=== PATIENT | male | born 1935 | race Caucasian/White ===

== ENCOUNTER 2024-05-15 19:24 | Emergency (ER) | payer OTHER, SELFPAY ==
[2024-05-15 19:26] VITALS: BP 190/98
[2024-05-15 20:52] VITALS: BP 183/93
[2024-05-15 21:00] VITALS: BP 183/89; BMI 26.3
--- NOTE | 2024-05-15 21:21 | ED.GENMED ---
History of Present Illness
<Brie Cantor [facility] - Last Filed: 05/15/24 22:05>
General
Chief Complaint: Overdose Unintentional
Source: patient and family (Daughter)
Exam Limitations: dementia
Time Seen by Provider: 05/15/24 20:51
History of Present Illness
History of Present Illness:
This is a 88 y/o male with PMH of dementia, prostate CA and bladder CA who presents to the ED c/o unintentional overdose. Pt presents with his daughter who went to check on him earlier today around noon and noticed 2 days worth of his morning
medications were missing after the nurse had just filled them. These medications include Lopressor, Lasix, Plavix and ASA. Pt admits to feeling fatigued, generalized weakness and overall low energy. He accompanied his daughter on errands today and
was sluggish and constantly wanting to sit down and rest. He admits to tinnitus but states this is normal for him, denies any worsening of tinnitus from baseline today. Admits to L lower groin pain. Daughter is worried it is a UTI and is requesting
testing. Denies headache, nausea, vomiting, diarrhea, diaphoresis, chest pain, palpitations, syncope, dizziness, dysuria and hematuria. Denies tobacco and alcohol use.
Phy Exam
<Brie Cantor [facility] - Last Filed: 05/15/24 22:05>
Physical Exam
Physical Exam:
Skin: [place], soft, well-hydrated
Head: Atraumatic, normocephalic; scalp, pink freely moveable without tenderness
Eyes: sclerae non-icteric; pupils 2mm bilaterally and nonreactive to light; EOMI; no lid lag; red reflex present; visual asif full by confrontation bilaterally
Chest and Lungs: muscle and respiratory effort symmetric without use of accessory muscles; vesicular breath sounds without adventitious sounds; even, quiet breathing
Heart: No lifts or heaves visible; bradycardic rate and regular rhythm; No murmurs, rubs or gallops
PV: radial, dorsalis pedis and posterior tibial pulses all intact bilaterally
Course
<Brie Cantor, [facility] - Last Filed: 05/15/24 22:05>
Orders/Labs/Results
Orders:
Orders
05/15/24 21:01
Electrocardiogram (*1) Stat
Reason for Study: Other
Other Reason for Exam: overdose
EKG- Treatment ONCE
05/15/24 21:28
Acetaminophen Urgent
Complete Blood Count/With Diff Urgent
Comprehensive Metabolic Panel Urgent
Salicylate Urgent
05/15/24 22:17
Urinalysis Reflex To Culture Urgent
Date Specimen was Collected: 05/15/24
Time Specimen was Collected: 22:14
Urine Microscopic Reflex Cult Urgent
Abnormal Lab Results
05/15/24 05/15/24
21:28 22:17
RBC 3.86 L 10^6/uL
(4.70-6.10)
Hgb 12.6 L g/dL
(13.0-18.0)
Hct 36.0 L %
(39.0-52.0)
MCH 32.6 H pg
(27.0-31.0)
Absolute Lymphs (auto) 1.0 L 10^3/uL
(1.2-3.4)
Absolute Monos (auto) 0.7 H 10^3/uL
(0.1-0.6)
Lymphocytes % 16.6 L %
(20.5-51.1)
Monocytes % 10.9 H %
(1.7-9.3)
BUN 36 H mg/dl
(9-20)
Creatinine 1.8 H mg/dL
(0.7-1.3)
Glucose 146 H mg/dl
(70-99)
Total Protein 5.9 L g/dl
(6.3-8.2)
Urine Bacteria (Reflex) Few A
(Negative)
Urine Albumin (Reflex) 1+ A
(Neg - Trace)
Salicylates < 1.0 L mg/dl
(2.0-20.0)
Acetaminophen < 10 L ug/ml
(10-30)
05/15/24 21:28
05/15/24 21:28
Vital Signs
Initial and Last Documented VS:
Initial Vital Signs
Temp Pulse Resp BP Pulse Ox
98.5 F 61 16 190/98 97
05/15/24 19:26 05/15/24 19:26 05/15/24 19:26 05/15/24 19:26 05/15/24 19:26
Last Documented Vital Signs
Temp Pulse Resp BP Pulse Ox
97.9 F 56 16 177/73 96
05/15/24 21:00 05/15/24 22:00 05/15/24 22:00 05/15/24 22:00 05/15/24 22:00
[place];Esequiel Alberts, DO - Last Filed: 05/15/24 22:57>
Orders/Labs/Results
Orders:
Orders
05/15/24 21:01
Electrocardiogram (*1) Stat
Reason for Study: Other
Other Reason for Exam: overdose
EKG- Treatment ONCE
05/15/24 21:28
Acetaminophen Urgent
Complete Blood Count/With Diff Urgent
Comprehensive Metabolic Panel Urgent
Salicylate Urgent
05/15/24 22:17
Urinalysis Reflex To Culture Urgent
Date Specimen was Collected: 05/15/24
Time Specimen was Collected: 22:14
Urine Microscopic Reflex Cult Urgent
Abnormal Lab Results
05/15/24 05/15/24
21:28 22:17
RBC 3.86 L 10^6/uL
(4.70-6.10)
Hgb 12.6 L g/dL
(13.0-18.0)
Hct 36.0 L %
(39.0-52.0)
MCH 32.6 H pg
(27.0-31.0)
Absolute Lymphs (auto) 1.0 L 10^3/uL
(1.2-3.4)
Absolute Monos (auto) 0.7 H 10^3/uL
(0.1-0.6)
Lymphocytes % 16.6 L %
(20.5-51.1)
Monocytes % 10.9 H %
(1.7-9.3)
BUN 36 H mg/dl
(9-20)
Creatinine 1.8 H mg/dL
(0.7-1.3)
Glucose 146 H mg/dl
(70-99)
Total Protein 5.9 L g/dl
(6.3-8.2)
Urine Bacteria (Reflex) Few A
(Negative)
Urine Albumin (Reflex) 1+ A
(Neg - Trace)
Salicylates < 1.0 L mg/dl
(2.0-20.0)
Acetaminophen < 10 L ug/ml
(10-30)
05/15/24 21:28
05/15/24 21:28
Vital Signs
Initial and Last Documented VS:
Initial Vital Signs
Temp Pulse Resp BP Pulse Ox
98.5 F 61 16 190/98 97
05/15/24 19:26 05/15/24 19:26 05/15/24 19:26 05/15/24 19:26 05/15/24 19:26
Last Documented Vital Signs
Temp Pulse Resp BP Pulse Ox
97.9 F 56 16 177/73 96
05/15/24 21:00 05/15/24 22:00 05/15/24 22:00 05/15/24 22:00 05/15/24 22:00
<GRIFFIN Hamlin - Last Filed: 05/15/24 22:05>
*Critical Care Note
Total Time (30-74mins, 75-104mins- exclusive of procedures): Not Applicable
<Esequiel Alberts, - Last Filed: 05/15/24 22:57>
Update Note
Update Note:
7 PM ER attending, seen with student examined independently, elderly man with dementia perhaps took 1 or 2 extra of his meds, 8 or 10 hours ago, appears to be at his baseline now hypertensive heart rate in the 60s, cooperative, check screening blood
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
11 PM
Patient remains hemodynamically stable now 11 hours after his overdose
ED Attending Note
<GRIFFIN Hamlin - Last Filed: 05/15/24 22:05>
-
Portions of this chart may have been created with voice recognition software.� Occasional wrong word or��sound alike� substitutions may have occurred due to the inherent limitations of voice recognition software.
Discharge Plan
Departure
Patient Disposition: Home (Routine Discharge)
Date of Disposition: 05/15/24
Time of Disposition: 22:55
Patient with high blood pressure during this ER visit?: Yes
Condition: Good
Discharge Problem:
Accidental overdose
Instructions: Accidental Overdose (DC)
Prescriptions:
No Action
B12
amlodipine 5 mg Tablet
5 mg PO DAILY
alprazolam [Xanax] 0.25 mg Tablet
0.25 mg PO DAILY PRN (Reason: anxiety)
pantoprazole 40 mg Tablet,Delayed Release (Dr/Ec)
40 mg PO DAILY
hydrochlorothiazide 25 mg Tablet
25 mg PO DAILY
cholecalciferol (vitamin D3) [Vitamin D3] 25 mcg (1,000 unit) Capsule
25 mcg PO DAILY
memantine 10 mg Tablet
10 mg PO BID
Flonase
atorvastatin 80 mg Tablet
80 mg PO HS
donepezil 10 mg Tablet
10 mg PO HS
famotidine 40 mg Tablet
40 mg PO DAILY PRN (Reason: stomach upset)
clopidogrel 75 mg Tablet
75 mg PO DAILY
Rx Instructions:
mwf
venlafaxine 37.5 mg Tablet
37.5 mg PO DAILY
Linzess 145 mcg Capsule
145 mcg PO DAILY PRN (Reason: bm )
metoprolol succinate 25 mg Capsule,Sprinkle,Er 24hr
25 mg PO DAILY
aspirin 81 mg Capsule
81 mg PO DAILY
Referrals:
Fausto Duvall MD [Family Provider] - Next open appointment
Activity Restrictions/Additional Instructions:
Do not not give Rupesh the medicines that he took extra of tomorrow 05/16/24 then restart on
05/17/24 as previously prescribed
Interventions
Interventions:
*Risk Screen - Suicide Last Done: 05/15/24 19:26
*General Assessment Last Done: 05/15/24 21:22
*Neglect/Abuse Screening Last Done: 05/15/24 19:26
*ED COVID-19 Vaccine History Last Done: 05/15/24 21:22
ED- Cardiac Assessment Last Done: 05/15/24 21:22
ED- Neurological Assessment Last Done: 05/15/24 21:22
ED-Psychological Assessment Last Done: 05/15/24 21:22
ED- Pulmonary Assessment Last Done: 05/15/24 21:22
Discharge Date and Time
Print Language: AZERI
[2024-05-15 21:45] LABS: % Basophils 0.7 % (0-2); % Eosinophils 3.3 % (0-6); % Immature Granulocytes 0.3 % (0-0.5); % Lymphocytes 16.6 % (20.5-51.1); % Monocytes 10.9 % (1.7-9.3); % Neutrophils 68.2 % (42.2-75.2); Absolute Eosinophils 0.2 10^3/uL (0-0.7); Absolute Monocytes 0.7 10^3/uL (0.1-0.6); Absolute Neutrophils 4.2 10^3/uL (1.4-6.5); Hemoglobin 12.6 g/dL (13.0-18.0); Mean Corpuscular Hgb 32.6 pg (27.0-31.0); Mean Corpuscular Volume 93.3 fL (80.0-94.0); Mean Platelet Volume 10.1 fL (7.4-10.4); Nucleated Red Blood Cells % 0 % (-); Platelet Count 194 10^3/uL (130-400); Red Blood Cell Count 3.86 10^6/uL (4.70-6.10); White Blood Cell Count 6.1 10^3/uL (4.8-10.8)
[2024-05-15 22:00] VITALS: BP 177/73
[2024-05-15 22:01] LABS: ALT (SGPT) 25 U/L (0-50); AST (SGOT) 26 U/L (17-59); Acetaminophen < 10 ug/ml (10-30); Albumin 3.6 g/dl (3.5-5.0); Alkaline Phosphatase 83 U/L (38-126); Blood Urea Nitrogen 36 mg/dl (9-20); Calcium 8.9 mg/dl (8.4-10.2); Carbon Dioxide 29 mmol/L (22-30); Chloride 102 mmol/L (98-107); Estimated Creatinine Clearance 28 ml/min; Glucose 146 mg/dl (70-99); Potassium 3.5 mmol/L (3.5-5.1); Salicylate < 1.0 mg/dl (2.0-20.0); Sodium 139 mmol/L (135-145); Total Bilirubin 0.3 mg/dl (0.2-1.3); Total Protein 5.9 g/dl (6.3-8.2); eGFR 35.76
[2024-05-15 22:22] LABS: Urine Albumin 1+ (Neg - Trace); Urine Bilirubin Negative (Negative); Urine Character Clear (Clear); Urine Color Yellow; Urine Glucose Negative (Negative); Urine Ketone Negative (Negative); Urine Leukocyte Negative (Negative); Urine Nitrite Negative (Negative); Urine Occult Blood Negative (Negative); Urine Urobilinogen Negative (Neg - 1+)
[2024-05-15 22:29] LABS: Urine Squamous Cell 0-2 /LPF (Few); Urine Urothelial Cell 0-2 /LPF (FEW)
[2024-05-15 22:31] LABS: Urine Bacteria Few (Negative); Urine Red Blood Cell 0-2 /HPF (0-2)
== END 2024-05-15 23:25 | disposition home or self-care (01) ==
LOC: EMR 19:24
PROVIDERS: EMERGENCY PHYSICIAN Emergency Medicine; FAMILY PHYSICIAN Family Medicine
DX: T50.991A Poisoning by other drugs, medicaments and biological substances, accidental (unintentional), initial encounter (principal); R53.1 Weakness; F03.90 Unspecified dementia, unspecified severity, without behavioral disturbance, psychotic disturbance, mood disturbance, and anxiety; Z85.46 Personal history of malignant neoplasm of prostate; Z85.51 Personal history of malignant neoplasm of bladder
CPT/HCPCS: 99284; 80053; 80143; 80179; 81003; 81015; 85025; 93005